=== PATIENT | male | born 1950 | race Caucasian/White ===

== ENCOUNTER 2020-07-12 15:13 | Outpatient (CLI) | payer MEDICARE, SELFPAY ==
--- NOTE | ~2020-07-12 | XR_ITS ---
EXAMINATION: XR pelvis 1-2V INDICATION: Scoliosis TECHNIQUE: AP view the pelvis is obtained. COMPARISON: None available FINDINGS: Bone alignment is normal. There is no fracture. Mild osteoarthritis is noted in the hips. T he femoral head heights are equal. The soft tissues are unremarkable. IMPRESSION: 1. Mild osteoarthritis of the hips. Reviewed, dictated and finalized at location A.
--- NOTE | ~2020-07-12 | XR_ITS ---
EXAMINATION: XR chest 2V DATE: 07/12/2020 15:48 INDICATION: Contact with and suspected exposure to other hazardous, closed TECHNIQUE: PA and lateral views of the chest are obtained. COMPARISON: None available FINDINGS: The lungs are free of acute opacities. There is no pleural effusion or pneumothorax. The ca rdiomediastinal silhouette is normal. There are bridging osteophytes at multiple levels in the spine, consistent with diffuse idiopathic skeletal hyperostosis (DISH). IMPRESSION: 1. No acute cardiopulmonary abnormality. Reviewed, dictated and finalized at location A.
--- NOTE | ~2020-07-12 | XR_ITS ---
EXAMINATION: XR lumbar spine 6V w bending DATE: 07/12/2020 15:48 INDICATION: Unspecified osteoarthritis, unspecified site, possible scoliosis TECHNIQUE: Anteroposterior, lateral in neutral, flexion and extension, and bilateral oblique views of the lumbar spine, and cone-down lateral view of the lumbosacral junction were obtained. COMPARISON: None. FINDINGS: Bone alignment is normal. There is no fracture. No laxity is present with flexion or extens ion. The vertebral body heights are maintained. There is mild loss of intervertebral disc space heigh t throughout the lumbar spine. Severe facet osteoarthritis is present in the lower lumbar spine. Dege nerative osteophytes project from the anterior endplates of multiple vertebral bodies. A large volume of colonic stool is present. Calcified atherosclerosis is noted. No significant lumbar curvature is seen. IMPRESSION: 1. Spondylosis without acute findings. Reviewed, dictated and finalized at location A.
== END 2020-07-12 15:14 | disposition home or self-care (01) ==
LOC: ANHBWCIMG 15:17
PROVIDERS: PCP Family Medicine; Visit Provider Family Medicine
DX: M41.9 Scoliosis, unspecified (principal); G89.29 Other chronic pain; M19.90 Unspecified osteoarthritis, unspecified site; M54.9 Dorsalgia, unspecified; Z77.098 Contact with and (suspected) exposure to other hazardous, chiefly nonmedicinal, chemicals; M47.896 Other spondylosis, lumbar region; M16.0 Bilateral primary osteoarthritis of hip
CPT/HCPCS: 71046; 72114; 72170

== ENCOUNTER 2020-07-13 10:31 | Outpatient (CLI) | payer MEDICARE, SELFPAY ==
[2020-07-13 18:42] LABS: Basophils Percent Auto 0.5 % (0.2-1.2); Eosinophils Absolute Auto 0.1 K/mm3 (0-0.3); Eosinophils Percent Auto 1.6 % (0-4.4); Hematocrit 39.7 % (42.0-52.0); Hemoglobin 12.9 g/dL (14.0-18.0); Immature Granulocyte Absolute 0.01 K/mm3 (0.00-0.031); Immature Granulocyte Percent A 0.2 % (0-0.5); Lymphocytes Absolute Auto 2.52 K/mm3 (0.9-3.2); Lymphocytes Percent Auto 40.3 % (18.3-44.2); Mean Corpuscular HGB Conc 32.5 g/dl (32-36); Mean Corpuscular Hemoglobin 29.7 pg (26-34); Mean Corpuscular Volume 91.5 fl (80-100); Mean Platelet Volume 11.9 fl (7.4-10.4); Monocytes Absolute Auto 0.5 K/mm3 (0.1-0.6); Monocytes Percent Auto 7.5 % (2.6-8.5); Neutrophils Absolute Auto 3.1 K/mm3 (1.3-6.7); Neutrophils Percent Auto 49.9 % (45.5-73.1); Platelet Count Result 191 k/mm3 (150-375); Red Blood Count 4.34 M/mm3 (4.6-6.20); Red Cell Distribution Width 12.9 % (11.5-14.5); White Blood Count 6.3 K/mm3 (4.5-10.0)
[2020-07-13 18:46] LABS: Add Urine Microscopic? YES; Appearance Urine Clear (Clear); Bilirubin Urine Negative (Negative); Blood Urine Negative (Negative); Color Urine Yellow (Yellow); Glucose Urine UA Negative (Negative); Ketones Urine Negative (Negative); Leukocyte Esterase Ur 1+ LEU/UL (Negative); Mucus Urine Rare /lpf; Nitrate Urine Negative (Negative); Protein Urine Negative (Negative); RBC Urine 0-2 /hpf (0-2); Specific Grav Ur 1.015 (1.001-1.035); Urobilinogen Urine Negative mg/dL (<2.0); WBC Urine 0-3 /hpf
[2020-07-13 18:50] LABS: Alanine Aminotransferase 14 U/L (4-50); Albumin Level 3.9 g/dL (3.5-5.1); Alkaline Phosphatase 96 U/L (38-126); Anion Gap 5 mmol/L (8-16); Aspartate Amino Transferase 24 U/L (17-59); Bilirubin,Total 0.4 mg/dL (0.2-1.3); Blood Urea Nitrogen 29 mg/dL (9-20); CRP < 0.5 mg/dL (<1.0); Calcium 8.8 mg/dL (8.4-10.2); Carbon Dioxide 29 mmol/L (22-30); Chloride 105 mmol/L (98-107); Cholesterol 84 mg/dL (0-200); Estimated Glomerular Filt Rate > 60; Glucose 96 mg/dL (75-110); HDL Direct 18 mg/dL; Potassium 4.8 mmol/L (3.4-5.0); Sodium 139 mmol/L (137-145); Triglycerides 77 mg/dL (<150)
[2020-07-13 19:05] LABS: Vitamin D 25 Hydroxy 73.2 ng/mL
[2020-07-13 19:06] LABS: LDL Cholesterol Direct 55 mg/dL
[2020-07-13 19:21] LABS: Prostate Specific Antigen 1.5 ng/mL (< OR = 4.0)
[2020-07-13 19:55] LABS: Folic Acid 17.8 ng/mL (2.76->20)
[2020-07-18 07:42] LABS: LH 4.4 mIU/mL (1.6-15.2)
[2020-07-19 14:42] LABS: Testosterone Free 64.6 pg/mL (35.0-155.0); Testosterone Total 505 ng/dL (250-1100)
== END 2020-07-13 10:32 | disposition home or self-care (01) ==
PROVIDERS: PCP Family Medicine; Visit Provider Family Medicine
DX: Z12.5 Encounter for screening for malignant neoplasm of prostate (principal); C85.90 Non-Hodgkin lymphoma, unspecified, unspecified site; Z77.098 Contact with and (suspected) exposure to other hazardous, chiefly nonmedicinal, chemicals; I10 Essential (primary) hypertension; Z13.9 Encounter for screening, unspecified; M19.90 Unspecified osteoarthritis, unspecified site; Z82.62 Family history of osteoporosis; Z51.81 Encounter for therapeutic drug level monitoring; Z79.899 Other long term (current) drug therapy; M41.9 Scoliosis, unspecified; N99.89 Other postprocedural complications and disorders of genitourinary system; Z00.00 Encounter for general adult medical examination without abnormal findings; M54.9 Dorsalgia, unspecified
CPT/HCPCS: 36415; 80053; 80061; 81001; 82306; 82607; 82746; 83002; 84153; 84402; 84403; 84443; 85025; 86140; G0103

== ENCOUNTER 2020-10-27 14:29 | Outpatient (CLI) | payer MEDICARE, SELFPAY ==
[2020-10-27 21:02] LABS: Prostate Specific Antigen 2.2 ng/mL (< OR = 4.0)
== END 2020-10-27 14:30 | disposition home or self-care (01) ==
PROVIDERS: PCP Family Medicine
DX: Z12.5 Encounter for screening for malignant neoplasm of prostate (principal)
CPT/HCPCS: 36415; 84153; G0103

== ENCOUNTER 2020-10-31 01:10 | Day surgery (SDC) | payer MEDICARE, SELFPAY ==
[2020-10-18 08:59] VITALS: BMI 12.1
[2020-10-31 11:18] VITALS: BP 110/72; PULSE 65; RESP 18; TEMP 36.2; O2SAT 98; BMI 27.0
--- NOTE | 2020-10-31 11:29 | WPDANESEPPF ---
Anes - Initial Pre Proc Eval Procedure: Operation Date: 10/31/20 12:45 Proposed Procedures p Screening Colonoscopy - Aaron Duran MD Date/Time: 10/31/20 11:29 Surgeon: Aaron Duran MD Pre Op Diagnosis: neoplasm screening Patient Data Age: 70 Gender: M Height: 1.75 m Weight: 83 kg Last Vital Signs Pulse 65 10/31/20 11:18 Resp 18 10/31/20 11:18 BP 110/72 10/31/20 11:18 Pulse Ox 98 10/31/20 11:18 Allergies Allergy/AdvReac Type Severity Reaction Status Date / Time Penicillins AdvReac Rash Verified 10/31/20 11:15 Home Medications Medication Instructions Recorded Confirmed Type atorvastatin 20 mg tablet 20 mg PO DAILY #90 tablet 07/26/20 10/31/20 Rx citalopram 20 mg tablet 20 mg PO DAILY #90 tablet 07/26/20 10/31/20 Rx lisinopril 10 mg tablet 10 mg PO DAILY #90 tablet 07/26/20 10/31/20 Rx tamsulosin 0.4 mg PO DAILY 10/18/20 10/31/20 History Patient hx anesthesia problems: none Family hx anesthesia problems: none [facility] Past Medical History Medical History Allergies Anxiety Asthma Cancer Lymphoma Lymphoma, nodular, multiple sites Family History Family History Grandparent Cancer Social History Social History Smoking status: Never smoker Alcohol intake: never Substance use: never Substance use type: does not use Living arrangements: with family Spiritual care concerns: Yes Anes - Eval Final PreProcedure Day of Procedure 10/31/20 11:29 Patient weight: overweight Heart: regular rate and rhythm Lungs: clear to auscultation Airway: Mallampati scale class II Neurological: alert and oriented Last oral intake: >/= 8 hours ASA classification: II Emergent: no Anesthetic plan: proceed Anesthesia type and monitoring: general GIVS and standard monitoring Informed Consent: The patient's anesthetic plan and its attendant risks and benefits were discussed with the patient/family/POA. Questions were solicited and answers provided to the satisfaction of the patient/family/POA.
[2020-10-31] MEDS: LACTATED RINGERS 1,000 ML 30 ML IV CONT (11:30)
--- NOTE | 2020-10-31 11:48 | PM.HPGS ---
History of Present Illness History of Present Illness Consent: Risks, benefits, and alternatives have been discussed and questions answered. Patient agrees to proceed with procedure. Chief complaint: neoplasm screening Narrative: Hermilo Ingram is a 70 year old male with colon polyps 5 years ago. Review of Systems Constitutional: Constitutional: Denies headache(s) and Denies weakness Eyes: Eyes: Denies blurry vision ENT: Reports Normal hearing present, Denies headache(s) and Denies neck pain Cardiovascular: Cardiovascular: Denies chest pain and Denies dyspnea Respiratory: Respiratory: Denies dyspnea Gastrointestinal: Gastrointestinal: Reports no additional gastrointestinal complaints Genitourinary: Genitourinary: Denies dysuria Musculoskeletal: Musculoskeletal: Denies neck pain Integumentary/Breasts: Skin/Breast: Denies dry skin Neurologic: Reports Normal hearing present, Denies headache(s) and Denies weakness Psychiatric: Psychiatric: Denies anxiety Endocrine: Endocrine: Denies change in body appearance Hematologic/Lymphatic: Hematologic/Lymphatic: Denies easy bleeding Allergic/Immunologic: Allergic/Immunologic: Denies urticaria PMF Past Medical History Medical History (Updated 10/31/20 @ 11:49 by Aaron Duran MD) Allergies Anxiety Asthma Cancer Colon cancer screening Lymphoma Lymphoma, nodular, multiple sites Family History Family History Grandparent Cancer Social History Social History Smoking status: Never smoker Alcohol intake: never Substance use: never Substance use type: does not use Living arrangements: with family Spiritual care concerns: Yes Meds Home Medications and Allergies Home Medications Medication Instructions Recorded Confirmed Type atorvastatin 20 mg tablet 20 mg PO DAILY #90 tablet 07/26/20 10/31/20 Rx citalopram 20 mg tablet 20 mg PO DAILY #90 tablet 07/26/20 10/31/20 Rx lisinopril 10 mg tablet 10 mg PO DAILY #90 tablet 07/26/20 10/31/20 Rx tamsulosin 0.4 mg PO DAILY 10/18/20 10/31/20 History Allergies Allergy/AdvReac Type Severity Reaction Status Date / Time Penicillins AdvReac Rash Verified 10/31/20 11:15 Vital Signs Vital Signs - 24 hr 10/31/20 11:18 Temperature 97.2 F L Pulse Rate 65 Respiratory Rate 18 Blood Pressure 110/72 Pulse Oximetry 98 Exam Const: General: comfortable and no acute distress HENMT: General nose exam: Normal nares present Eyes: General: appearance normal, both eyes and all related structures Neck: Neck: no JVD Resp: Auscultation: clear to auscultation bilaterally Cardio: Rate: regular rate Rhythm: regular rhythm GI: Inspection: non-distended GI Palp: Yes Soft to palpation Skin: General skin exam: normal color Neuro: General: gait normal Speech: normal speech Extrem: General: normal to inspection Psych: Mental Status: mental status grossly normal Assessment and Plan Assessment and plan (1) Colon cancer screening: Code(s): Z12.11 - Encounter for screening for malignant neoplasm of colon Status: Acute Assessment and Plan: colonoscopy
[2020-10-31 12:04] VITALS: BP 101/61; PULSE 63; RESP 15; O2SAT 97
[2020-10-31 12:14] VITALS: BP 103/66; PULSE 60; RESP 15; O2SAT 98
[2020-10-31 12:24] VITALS: BP 122/77; PULSE 56; RESP 16; O2SAT 100
== END 2020-10-31 12:35 | disposition home or self-care (01) ==
PROVIDERS: PCP Family Medicine; Visit Provider Internal Medicine Gastroenterology
PROC: 0DJD8ZZ Inspection of Lower Intestinal Tract, Via Natural or Artificial Opening Endoscopic (ICD-10-PCS; CPT 45378; principal; 2020-10-31 12:45)
DX: Z12.11 Encounter for screening for malignant neoplasm of colon (principal); K57.30 Diverticulosis of large intestine without perforation or abscess without bleeding; K64.8 Other hemorrhoids; F41.9 Anxiety disorder, unspecified; J45.909 Unspecified asthma, uncomplicated; C85.90 Non-Hodgkin lymphoma, unspecified, unspecified site
CPT/HCPCS: G0121; J2704; J7120

== ENCOUNTER 2020-11-29 09:56 | Outpatient (CLI) | payer MEDICARE, SELFPAY ==
--- NOTE | ~2020-11-29 | XR_ITS ---
EXAMINATION: XR ribs BI 3V w CXR 2V EXAM DATE: 11/29/2020 10:13 INDICATION: W19.XXXA - Unspecified fall, initial encounter. Left mid to lower lateral rib pain. TECHNIQUE: Frontal projection of the upper left ribs, frontal projection of the lower left ribs, obli que projection of the left ribs. Frontal projection of the upper right ribs, frontal projection of t he lower right ribs, oblique projection of the right ribs, frontal and lateral chest x-ray(s) for int erpretation. Comparison is made to prior examination from 07/12/2020. FINDINGS: There are no displaced acute rib fractures identified. No confluent consolidation, pneumot horax or pleural effusion suspected. Cardiomediastinal silhouette is normal. IMPRESSION: No acute displaced rib fractures bilaterally. Reviewed, dictated and finalized at location A.
== END 2020-11-29 09:57 | disposition home or self-care (01) ==
LOC: ANHBWCIMG 09:58
PROVIDERS: PCP Family Medicine; Visit Provider Family Medicine
DX: R07.81 Pleurodynia (principal)
CPT/HCPCS: 71046; 71110

== ENCOUNTER 2021-11-30 08:22 | Outpatient (CLI) | payer MEDICARE, SELFPAY ==
[2021-11-30 18:42] LABS: Basophils Percent Auto 0.5 % (0.2-1.2); Eosinophils Absolute Auto 0.2 K/mm3 (0-0.3); Eosinophils Percent Auto 2.8 % (0-4.4); Hematocrit 40.6 % (42.0-52.0); Immature Granulocyte Absolute 0.01 K/mm3 (0.00-0.031); Immature Granulocyte Percent A 0.1 % (0-0.5); Lymphocytes Absolute Auto 2.77 K/mm3 (0.9-3.2); Lymphocytes Percent Auto 36.5 % (18.3-44.2); Mean Corpuscular Volume 90.4 fl (80-100); Mean Platelet Volume 11.9 fl (7.4-10.4); Monocytes Absolute Auto 0.6 K/mm3 (0.1-0.6); Monocytes Percent Auto 7.9 % (2.6-8.5); Neutrophils Percent Auto 52.2 % (45.5-73.1); Platelet Count Result 212 k/mm3 (150-375); Red Blood Count 4.49 M/mm3 (4.6-6.20); Red Cell Distribution Width 13.2 % (11.5-14.5); White Blood Count 7.6 K/mm3 (4.5-10.0)
[2021-11-30 18:58] LABS: Alanine Aminotransferase 18 U/L (6-50); Albumin Level 4.2 g/dL (3.5-5.1); Alkaline Phosphatase 105 U/L (38-126); Anion Gap 8 mmol/L (8-16); Aspartate Amino Transferase 57 U/L (17-59); Bilirubin,Total 0.6 mg/dL (0.2-1.3); Blood Urea Nitrogen 21 mg/dL (9-20); Calcium 9.1 mg/dL (8.4-10.2); Carbon Dioxide 29 mmol/L (22-30); Chloride 102 mmol/L (98-107); Cholesterol 117 mg/dL (0-200); Estimated Glomerular Filt Rate > 60; Glucose 95 mg/dL (65-110); HDL Direct 21 mg/dL; Sodium 139 mmol/L (137-145); Triglycerides 158 mg/dL (<150)
[2021-11-30 19:09] LABS: LDL Cholesterol Direct 60 mg/dL
[2021-11-30 19:26] LABS: Prostate Specific Antigen 1.4 ng/mL (< OR = 4.0)
== END 2021-11-30 08:23 | disposition home or self-care (01) ==
PROVIDERS: PCP Family Medicine; Visit Provider Family Medicine
DX: J45.909 Unspecified asthma, uncomplicated (principal); F41.9 Anxiety disorder, unspecified; D64.9 Anemia, unspecified; Z85.79 Personal history of other malignant neoplasms of lymphoid, hematopoietic and related tissues; M54.9 Dorsalgia, unspecified; G89.29 Other chronic pain; Z12.5 Encounter for screening for malignant neoplasm of prostate; I10 Essential (primary) hypertension
CPT/HCPCS: 36415; 80053; 80061; 84153; 85025; G0103

== ENCOUNTER 2022-12-03 14:41 | Outpatient (CLI) | payer MEDICARE, SELFPAY ==
[2022-12-03 19:07] LABS: Hematocrit 39.5 % (42.0-52.0); Hemoglobin 13.1 g/dL (14.0-18.0); Mean Corpuscular HGB Conc 33.2 g/dl (32-36); Mean Corpuscular Hemoglobin 30.5 pg (26-34); Mean Corpuscular Volume 92.1 fl (80-100); Mean Platelet Volume 12.1 fl (7.4-10.4); Platelet Count Result 193 k/mm3 (150-375); Red Blood Count 4.29 M/mm3 (4.6-6.20); Red Cell Distribution Width 12.3 % (11.5-14.5)
[2022-12-03 19:34] LABS: Alanine Aminotransferase 21 U/L (6-50); Albumin Level 4.2 g/dL (3.5-5.1); Alkaline Phosphatase 123 U/L (38-126); Anion Gap 7 mmol/L (8-16); Aspartate Amino Transferase 40 U/L (17-59); Bilirubin,Total 0.4 mg/dL (0.2-1.3); Blood Urea Nitrogen 21 mg/dL (9-20); Calcium 9.1 mg/dL (8.4-10.2); Carbon Dioxide 28 mmol/L (22-30); Chloride 106 mmol/L (98-107); Cholesterol 110 mg/dL (0-200); Estimated Glomerular Filt Rate > 60; Glucose 89 mg/dL (65-110); HDL Direct 19 mg/dL; LDL Cholesterol Direct 70 mg/dL; Potassium 3.9 mmol/L (3.4-5.0); Sodium 141 mmol/L (137-145); Triglycerides 171 mg/dL (<150)
[2022-12-03 19:44] LABS: Iron 84 ug/dL (49-181)
[2022-12-03 19:50] LABS: Prostate Specific Antigen 1.8 ng/mL (< OR = 4.0)
[2022-12-03 19:53] LABS: Percent Iron Saturation 29 % (20-50)
[2022-12-06 10:39] LABS: Testosterone Total 348 ng/dL (250-1100)
== END 2022-12-03 14:42 | disposition home or self-care (01) ==
PROVIDERS: PCP Family Medicine; Visit Provider Family Medicine
DX: R53.83 Other fatigue (principal); C85.90 Non-Hodgkin lymphoma, unspecified, unspecified site; D64.9 Anemia, unspecified; F41.9 Anxiety disorder, unspecified; G89.29 Other chronic pain; I10 Essential (primary) hypertension; J45.909 Unspecified asthma, uncomplicated; M54.9 Dorsalgia, unspecified; N40.0 Benign prostatic hyperplasia without lower urinary tract symptoms; Z12.5 Encounter for screening for malignant neoplasm of prostate; R25.1 Tremor, unspecified; E78.1 Pure hyperglyceridemia
CPT/HCPCS: 36415; 80053; 80061; 83540; 83550; 84153; 84403; 84443; 85027; G0103

== ENCOUNTER 2023-06-03 13:36 | Outpatient (CLI) | payer MEDICARE, SELFPAY ==
[2023-06-03 19:00] LABS: Hematocrit 44.2 % (42.0-52.0); Hemoglobin 14.2 g/dL (14.0-18.0); Mean Corpuscular HGB Conc 32.1 g/dl (32-36); Mean Corpuscular Hemoglobin 29.8 pg (26-34); Mean Corpuscular Volume 92.9 fl (80-100); Mean Platelet Volume 11.8 fl (7.4-10.4); Platelet Count Result 222 k/mm3 (150-375); Red Blood Count 4.76 M/mm3 (4.6-6.20); Red Cell Distribution Width 12.4 % (11.5-14.5); White Blood Count 9.1 K/mm3 (4.5-10.0)
[2023-06-03 20:15] LABS: Alanine Aminotransferase 20 U/L (6-50); Albumin Level 4.4 g/dL (3.5-5.1); Alkaline Phosphatase 106 U/L (38-126); Anion Gap 6 mmol/L (8-16); Aspartate Amino Transferase 43 U/L (17-59); Bilirubin,Total 0.6 mg/dL (0.2-1.3); Blood Urea Nitrogen 27 mg/dL (9-20); Calcium 9.4 mg/dL (8.4-10.2); Carbon Dioxide 29 mmol/L (22-30); Chloride 104 mmol/L (98-107); Estimated Glomerular Filt Rate > 60; Glucose 73 mg/dL (65-110); Potassium 4.2 mmol/L (3.4-5.0); Sodium 139 mmol/L (137-145)
== END 2023-06-03 13:37 | disposition home or self-care (01) ==
LOC: ANHBWCLAB 13:38
PROVIDERS: PCP Family Medicine; Visit Provider Family Medicine
DX: C85.90 Non-Hodgkin lymphoma, unspecified, unspecified site (principal); J45.909 Unspecified asthma, uncomplicated; R25.1 Tremor, unspecified; R53.83 Other fatigue
CPT/HCPCS: 36415; 80053; 85027

== ENCOUNTER 2023-12-17 08:58 | Outpatient (CLI) | payer MEDICARE, SELFPAY ==
[2023-12-17 18:45] LABS: Basophils Absolute Auto 0.1 K/mm3 (0.0-0.1); Basophils Percent Auto 0.7 % (0.2-1.2); Eosinophils Absolute Auto 0.1 K/mm3 (0-0.3); Eosinophils Percent Auto 1.6 % (0-4.4); Hematocrit 42.9 % (42.0-52.0); Hemoglobin 13.5 g/dL (14.0-18.0); Immature Granulocyte Absolute 0.01 K/mm3 (0.00-0.031); Immature Granulocyte Percent A 0.1 % (0-0.5); Lymphocytes Absolute Auto 2.42 K/mm3 (0.9-3.2); Mean Corpuscular HGB Conc 31.5 g/dl (32-36); Mean Corpuscular Hemoglobin 28.8 pg (26-34); Mean Corpuscular Volume 91.5 fl (80-100); Mean Platelet Volume 11.3 fl (7.4-10.4); Monocytes Absolute Auto 0.5 K/mm3 (0.1-0.6); Monocytes Percent Auto 6.9 % (2.6-8.5); Neutrophils Absolute Auto 3.9 K/mm3 (1.3-6.7); Neutrophils Percent Auto 55.7 % (45.5-73.1); Platelet Count Result 231 k/mm3 (150-375); Red Blood Count 4.69 M/mm3 (4.6-6.20); Red Cell Distribution Width 12.8 % (11.5-14.5); White Blood Count 6.9 K/mm3 (4.5-10.0)
[2023-12-17 18:57] LABS: Alanine Aminotransferase 15 U/L (6-50); Albumin Level 4.3 g/dL (3.5-5.1); Alkaline Phosphatase 126 U/L (38-126); Anion Gap 10 mmol/L (4-12); Aspartate Amino Transferase 43 U/L (17-59); Bilirubin,Total 0.3 mg/dL (0.2-1.3); Blood Urea Nitrogen 24 mg/dL (9-20); Calcium 9.1 mg/dL (8.4-10.2); Carbon Dioxide 26 mmol/L (22-30); Chloride 105 mmol/L (98-107); Cholesterol 121 mg/dL (0-200); Estimated Glomerular Filt Rate > 60; Glucose 104 mg/dL (65-110); HDL Direct 21 mg/dL; Magnesium 2.2 mg/dL (1.6-2.3); Potassium 4.2 mmol/L (3.4-5.0); Sodium 141 mmol/L (137-145); Triglycerides 157 mg/dL (<150)
[2023-12-17 19:08] LABS: LDL Cholesterol Direct 69 mg/dL
== END 2023-12-17 08:59 | disposition home or self-care (01) ==
PROVIDERS: PCP Nurse Practitioner Adult Health; Visit Provider Nurse Practitioner Adult Health
DX: Z12.5 Encounter for screening for malignant neoplasm of prostate (principal); I10 Essential (primary) hypertension
CPT/HCPCS: 36415; 80053; 80061; 83735; 84153; 85025; G0103

== ENCOUNTER 2024-07-14 09:18 | Outpatient (CLI) | payer MEDICARE, SELFPAY ==
--- OUTSIDE RECORDS SUMMARY | 2024-07-14 10:07 | XMS_ITS | Clinical Summary ---
Author Organization [facility] [address] Address [address] [place] [address] Phone Care Team Providers Care Train Attendant Name Role Phone Asif Orellana Primary Care Provider [phone] Allergies Active Allergy Reactions Criticality Noted Date Comments Penicillins Hives Medium Medications cetirizine (ZyrTEC) 10 mg tablet Take 10 mg by mouth daily as needed. Active atorvastatin (LIPITOR) 20 mg tabletIndications :Low HDL (under 40) Take 1 tablet (20 mg total) by mouth daily 90 tablet 3 0 Active lisinopriL (PRINIVIL,ZESTRIL ) 10 mg tabletIndications :Essential hypertension Take 1 tablet (10 mg total) by mouth daily 90 tablet 3 0 Active tamsulosin (FLOMAX) 0.4 mg extended release capsuleIndication s:enlarged prostate Take 1 capsule (0.4 mg total) by mouth nightly 90 capsule 3 1 Active Active Problems Problem Noted Date Diagnosed Date Benign prostatic hyperplasia 12/16/2019 Hematuria 12/16/2019 Bacterial cystitis 04/28/2019 Assessment & Plan (04/30/2019 9:19 AM HOME CARE COMPANION): Urinalysis showed some pyuria and greater than 100,000 clinically insignificant bacteria. Since his last office visit, he has developed some vague frequency and urgency, possibly some dysuria. CT scan showed some thickening of the bladder wall and stranding in the surrounding tissue suggestive of cystitis. We will put him on empiric Bactrim therapy, risks of medication discussed. We will repeat a urinalysis in two weeks. If abnormalities persist, referral to Urology is probably a good idea. Chronic prostatitis 04/08/2019 Overview (05/22/2019): Active sediment, negative culture, improved with Bactrim. Assessment & Plan (11/10/2019 1:49 PM CDT): He had an sediment and negative culture which was improved with a trial of Bactrim therapy. It could have been a low grade cystitis. He never had much in the way of urinary symptoms, just some vague pelvic and flank pains. The right flank pain is improved. We will check a follow-up urinalysis. Assessment & Plan (05/31/2019 5:48 PM HOME CARE COMPANION): His left flank/pelvic discomfort/left lower abdominal symptoms are improved with empiric therapy of possible chronic prostatitis/bacterial cystitis. A follow-up urinalysis shows a decreased number of white blood cells per high-power field that did not meet the criteria for culture. Previously, a urine culture was negative for pathogenic bacteria. He probably has a mild chronic prostatitis. We will keep him on Bactrim for the next two or three months, risks of medication discussed. Check a BMP in two weeks due to also being on lisinopril. Check a urinalysis at the end of treatment to see if there is improvement, risks of medication discussed. Follow- up as scheduled in October or sooner if needed. Left hip pain 10/06/2018 Assessment & Plan (05/10/2019 2:01 PM HOME CARE COMPANION): No major hip pathology was reported on his recent stone protocol CT scan. It could be a referred pain from his back. We will review with radiology. Assessment & Plan (04/21/2019 10:14 AM HOME CARE COMPANION): He has been experiencing some nagging left hip pain. It seems to be radiating or associated with left mid to lower back pain and flank pain. Etiology is unclear. We are getting a renal stone protocol CT which should include the hip to assess for osteoarthritis there. He will start taking some ibuprofen regularly for the next two weeks. I suggested physical therapy, but he wants to defer for now. We will be in touch with him about results of imaging. Left flank pain 10/06/2018 Assessment & Plan (04/30/2019 9:20 AM HOME CARE COMPANION): He continues to have left-sided mid to lower back and flank pain of unknown cause. It is intermittent and seems to be related mostly to position, so a musculoskeletal cause is suspected. No major pathology was reported on his renal stone protocol CT scan. We will review in person with Radiology. Assessment & Plan (05/03/2019 3:47 PM HOME CARE COMPANION): He has somewhat chronic left-sided mid to lower back/flank pain of uncertain cause. We are evaluating with a urinalysis and renal stone protocol CT scan. Essential hypertension 09/16/2018 Assessment & Plan (11/03/2019 9:44 AM CDT): Blood pressure is in a good range on current therapy. He has no new symptoms of concern. Recent labs are stable. Continue same and follow-up in a year or sooner if needed. Lab Results Component Value Date GLUCOSE 103 10/27/2019 CALCIUM 9.2 10/27/2019 SODIUM 143 10/27/2019 POTASSIUM 4.4 10/27/2019 CO2 26 10/27/2019 CHLORIDE 108 10/27/2019 BUNSER 20 10/27/2019 CREATININE 1.17 10/27/2019 Assessment & Plan (04/21/2019 10:13 AM HOME CARE COMPANION): Blood pressure is in a good range. He is tolerating his medications. We'll check follow-up labs before his next visit in six months. Assessment & Plan (10/16/2018 10:53 AM CDT): Blood pressure in the office today is actually acceptable, but he brought in readings over the past month or so from home and most of them are mildly elevated. We will put him on lisinopril, risks of medication discussed. He will continue to check blood pressure at home. Carpio blood pressure is around 120/70. If he is not consistently below 140/90, he should call for early follow up and/or adjustment of medication. Otherwise, follow-up in six months. Assessment & Plan (09/16/2018 10:13 AM CDT): We have been watching a borderline blood pressure situation. Blood pressure 6 months ago was normal. Today, after climbing the steps, he had mild elevation of systolic and diastolic. After resting in the room for awhile, systolic came back into a normal range, but diastolic remains mildly elevated. We will have him start checking blood pressure at home. He does have a good quality cuff that we have previously evaluated for accuracy, but he has not been checking lately. He will bring his readings back to the office in about a month for review. External hemorrhoids 09/06/2017 Assessment & Plan (10/16/2018 10:53 AM CDT): He went to see Dr. Benoit, but since the hemorrhoids were not bothering him that much at the time, they recommended conservative management without surgery for now. Assessment & Plan (09/23/2018 3:24 PM CDT): Patient's symptoms are minimal. He was offered to try topical medications as needed or have surgical intervention as long as he understands the post op period, patient was agreeable to try topical medications as needed and will let us know if he changes his mind or if symptoms change. He denies current issues with his bowel regimen. He was encouraged to avoid constipation or diarrhea as these may aggravate symptoms. Assessment & Plan (09/16/2018 10:12 AM CDT): He has had external hemorrhoids for awhile now. Lately they have been bothering him with some local irritation and bleeding. They have flared from time to time in the past. We will refer to Dr. Benoit for further evaluation and management. Sensorineural hearing loss (SNHL) of both ears 1 05/05/2016 Overview (03/09/2017): Moderate to severe, see audiology report. Assessment & Plan (09/16/2018 10:16 AM CDT): Hearing is functional, and exam of the ear drums is normal. Low HDL (under 40) 03/01/2017 Overview (08/29/2017): Normal total and LDL cholesterol, low HDL. Assessment & Plan (11/10/2019 1:51 PM CDT): He has a low HDL. O He is on cholesterol medicine to reduce cardiovascular risk, total and LDL cholesterol are also very low. He is tolerating medication well. Lab Results Component Value Date CHOL 82 10/27/2019 CHOL 141 09/16/2018 CHOL 138 02/15/2017 Lab Results Component Value Date HDL 22 (L) 10/27/2019 HDL 22 (L) 09/16/2018 HDL 23 (L) 02/15/2017 Lab Results Component Value Date LDLCALC 40 10/27/2019 LDLCALC 96 09/16/2018 LDL 94 02/15/2017 Lab Results Component Value Date TRIG 99 10/27/2019 TRIG 116 09/16/2018 TRIG 110 02/15/2017 Assessment & Plan (10/26/2018 8:59 AM CDT): Total and LDL cholesterol are not that bad, but HDL is quite low. We talked about eating right, avoiding saturated fats, and getting regular aerobic exercise. Ten year Brimhall risk is also somewhat elevated at 10%. He might be able to reduce that risk by taking a cholesterol medicine. After discussing risks versus benefits, he would like to try generic Lipitor 20 mg daily. We will check a follow-up lipid panel in about a year. Assessment & Plan (03/06/2018 9:08 AM HOME CARE COMPANION): We do not have a current lipid panel, but will check again with his next appointment in about six months. In the meantime, work on diet. I gave him some common sense advice. Assessment & Plan (08/29/2017 10:57 AM CDT): We discussed the most recent cholesterol panel from last February. Total cholesterol and LDL are in a very good range, but HDL is low. Recommend he eat a heart healthy diet, and get regular aerobic exercise. Follow-up lipid panel periodically. Non morbid obesity 10/06/2014 Assessment & Plan (11/10/2019 1:51 PM CDT): He is right at the borderline of obesity. Blood sugar on recent labs was mildly elevated. We discussed the risk of diabetes. He should work on his diet and lose some weight. Lab Results Component Value Date GLUCOSE 103 10/27/2019 CALCIUM 9.2 10/27/2019 SODIUM 143 10/27/2019 POTASSIUM 4.4 10/27/2019 CO2 26 10/27/2019 CHLORIDE 108 10/27/2019 BUNSER 20 10/27/2019 CREATININE 1.17 10/27/2019 Assessment & Plan (05/03/2019 3:50 PM HOME CARE COMPANION): He has put on a few pounds. This might be contributing to his back/flank/hip issues. Weight loss would probably help. We will have him work on this. Assessment & Plan (09/16/2018 10:15 AM CDT): Weight is down few lb, so he is no longer technically obese. Continue efforts. Assessment & Plan (03/06/2018 9:08 AM HOME CARE COMPANION): His weight fluctuates. He was down as low as about 193 lb, but is 10 lb heavier, placing him in a technically obese category again. He has been lifting weights. His has been placed on a low-carbohydrate diet so he thinks this will help. I encouraged him to continue efforts along this line. Assessment & Plan (02/14/2017 12:03 PM HOME CARE COMPANION): Ever since he retired, he has not been as active, and his weight has crept up on him. He is trying to work on keeping his weight under control. Benign prostatic hyperplasia with nocturia 08/06 Overview (08/14/2017): Improved with Flomax. Assessment & Plan (11/10/2019 1:48 PM CDT): He is no longer using Flomax. He gets up at night once or twice to urinate. He has no urinary discomfort. PSA about a year ago was unremarkable. There was a question of possible bacterial cystitis versus prostatis, and he was treated with 2 weeks of antibiotics. Most of his symptoms resolved. A follow-up urinalysis is pending. Prostate exam today is unchanged. We will monitor clinically. Assessment & Plan (05/10/2019 2:00 PM HOME CARE COMPANION): Prostate is somewhat enlarged, but probably more or less normal for his age. There is no tenderness to suggest prostatitis. Exam is similar to six months ago when he was here for his annual. Assessment & Plan (05/03/2019 3:47 PM HOME CARE COMPANION): He has no new symptoms. He was previously on Flomax, but is no longer taking this medication. He is having some left flank pain, possibly chronic nephrolithiasis, but there is no visible blood in the urine. We will check a urinalysis and renal stone protocol CT scan. Assessment & Plan (09/16/2018 10:10 AM CDT): He has no new urinary symptoms. He used to take Flomax, but it is not currently on his list. Prostate is mildly to moderately enlarged with no definite worrisome features. He would like to check another PSA, so this will be done. Assessment & Plan (03/06/2018 9:04 AM HOME CARE COMPANION): He ran out of Flomax, but has not noticed any difference in symptoms, so he does not plan to resume taking it. We will monitor for any recurrent symptoms. Assessment & Plan (08/14/2017 10:41 AM CDT): He is doing well in this regard. The Flomax has helped reduce the frequency of nocturia. He has no other urinary complaints. Originally, we were going to check his PSA because of a past history of elevation. He did go to see a urologist in [place] a few years ago, but he does not recall any of the details. He will get the PSA done today. Tinnitus aurium, left 02/06/2010 Assessment & Plan (02/14/2017 12:03 PM HOME CARE COMPANION): Some associated hearing loss. Has not seen an ENT specialist. In past 4-5 months has had 2 episodes of vertigo lasting a few minutes each. Has a constant pressure behind the left ear. In view of these symptoms, imaging is indicated so we will check an MRI of the brain and the internal auditory canals. He could have an acoustic neuroma or other slow growing process. Mid back pain 02/06/2009 Assessment & Plan (04/21/2019 10:15 AM HOME CARE COMPANION): He has chronic mid to lower and mostly left-sided back and flank pain of uncertain cause. Presumably this is due to degenerative change. He has acute exacerbations when he sneezes and in certain positions. It seems to be worsening, possibly due to weight gain. We are getting a renal stone protocol CT which should allow is to image his spine as well as his left hip. We will be in touch with him about results. 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 It only bothers him when he coughs or when he bumps into a wall. It can cause sharp shooting pains radiating from the mid back down to his left lower back and gluteal area. Sometimes there is a bandlike radiation anteriorly. Hanging on the inversion table at home can help quite a bit. This sounds like a musculoskeletal/degenerative osteoarthritis type of pain in his spine with some nerve irritation. He says it is not progressive, but if he wants additional workup, he will let me know so we can pursue it. Assessment & Plan (02/14/2017 12:04 PM HOME CARE COMPANION): No history of injury. Occasional radiation to lower back and left hip. Got some therapy which helped a lot. Takes an occasional Jacey aspirin, otherwise no treatment or Xrays done. Exam is normal, so this seems like ordinary mechanical back pain. We will continue to monitor clinically without further evaluation or intervention at this time unless things change. Chronic seasonal allergic rhinitis 02/06/1997 Assessment & Plan (09/27/2018 11:48 AM CDT): He takes Zyrtec as needed for his allergies. Recently he has had a cough which he thinks is more of a viral respiratory infection. It started about a week ago and was associated with some hot flashes. He did not take his temperature. He says it is improving. Exam of the lungs does show some moderate course wheezing in both lung bases, left greater than right. If he does not continue to improve, he should call for an early follow-up. Assessment & Plan (08/14/2017 10:42 AM CDT): Symptoms are reasonably well controlled with [id number] Zyrtec. His chronic cough has resolved. He thinks it is because a pet they had in the house . Continue to monitor. Assessment & Plan (02/14/2017 12:04 PM HOME CARE COMPANION): Mostly fall allergies affecting eyes and nasal passages. Responds to Zyrtec taken as needed. He denies having perennial symptoms, or much in the way of postnasal drainage, so it is unlikely that he has chronic sinusitis as a cause of his cough, but it is a consideration. He may want to think about taking the Zyrtec regularly. Resolved Problems Problem Noted Date Diagnosed Date Resolved Date Elevated blood pressure reading 08/14/2017 10/16/2018 Overview (10/16/2018): Transitioned to mild hypertension, on treatment. Assessment & Plan (03/06/2018 9:07 AM HOME CARE COMPANION): We are monitoring a somewhat borderline blood pressure at times, but today it is in a reasonable range so we will continue without intervention for now. Weight loss would be helpful. He is also trying to stay active. Follow-up in six months. Assessment & Plan (08/29/2017 10:56 AM CDT): Blood pressure in the office is again somewhat borderline. He brought in some blood pressure readings from home. Initially, they were mildly elevated, but more recent ones have been normal. He will continue to monitor and write down blood pressures. Bring them to his next office visit in six months. Assessment & Plan (08/14/2017 10:42 AM CDT): Blood pressure in the office today is mildly elevated. He has never had high blood pressure before. We will have him check blood pressures at home over period of two weeks or so and return with the readings for re-evaluation. Other chest pain 06/06/2017 03/06/2018 Overview (08/14/2017): Single episode, night time. Details not remembered. No associated symptoms. Lasted 30' but he did not seek medical attention. He stays active, no history of exertional chest pain. Assessment & Plan (08/29/2017 10:55 AM CDT): He had a treadmill stress test which was normal. He had excellent exercise tolerance. There was no chest pain or EKG change. This significantly lowers his cardiovascular risk. Therapeutic lifestyle changes are still recommended and were discussed. Assessment & Plan (08/14/2017 7:58 PM CDT): About two months ago, he had a single episode of fairly severe chest pain that lasted about 30 min. There were no associated symptoms. He can't remember many of the details, whether it was before bedtime or if it woke him from sleep. He is quite active, mows grass, helped a friend build a deck. He has never had exertional chest pain. We checked an EKG in the office. There is poor R wave progression, possible Q in V1 only, and PRWP, but no definite evidence of prior LA. We will order a treadmill stress test. Brimhall risk based on his last cholesterol profile is 13%, so we will consider putting him on cholesterol medicine as well depending on his wishes. Currently he does not want to take a cholesterol medicine. It is probably a good idea for him to take a baby aspirin as well pending results of the stress test, and he agrees to do so. If he has chest pain in the meantime, he should go straight to the emergency room for further evaluation. Chronic cough 02/07/2012 08/14/2017 Assessment & Plan (03/01/2017 12:33 PM HOME CARE COMPANION): Irritation in chest with mostly nonproductive cough for past 4-5 years. No change in severity. No history of hemoptysis. If he produces sputum, it is clear. He does have a lot of heartburn, 2 x a week. Takes OTC Nexium as needed. For the past year, his heartburn has not really bothered him much. He has learned to modify his diet and avoid foods that cause him the symptoms. However he could be having silent reflux. We will get a chest x-ray, and if normal, consider other interventions or referral. Immunizations Immunization Administration Dates Next Due Influenza, Quadrivalent, Spl it, Preservative Free, Intramuscular 03/06/2018 Influenza, Trivalent, High D ose, Split, Preservative Free, Intramuscular 04/21/2019,02/14/2017 Pneumococcal Conjugate PCV 13 02/14/2017 Pneumococcal Polysaccharide PPV23 03/06/2018 Surgical History Surgery Date Site/Laterality Comments SALIVARY GLAND SURGERY 09/08/2009 MALT (marginal zone) lymphoma, resected, T0. COLONOSCOPY 04/06/2004 Normal, Dr. Hernández. COLONOSCOPY 04/08/2007 - 04/07/2008 Details lacking. COLONOSCOPY 04/25/2017 Tubular adenoma, Dr. Mcqueen, [facility]. CYSTOSCOPY 01/08/2020 Office procedure, normal except for enlarge prostate lateral lobes, Dr. Davies. Medical History Medical History Date Comments Colon polyp GERD (gastroesophageal reflu x disease) Low back pain Details lacking. 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 Details lacking. Chronic cough 02/07/2012 Other chest pain 06/06/2017 Single episode, night time. Details not remembered. No associated symptoms. Lasted 30' but he did not seek medical attention. He stays active, no history of exertional chest pain. History of stress test 08/21/2017 Normal, A . Essential hypertension 09/16/2018 Elevated blood pressure reading 08/14/2017 Transitioned to mild hypertension, on treatment. Asthma Erectile dysfunction Kidney stone Visual impairment Family History * Patient is adopted Medical History Relation Name Comments Alzheimer's disease Father Heart attack Father Breast cancer Maternal Grandmother Diabetes type II Mother's Sister Arthritis Other 1 Family history of arthritis; Cancer Other 2 Family history of cancer; Diabetes Other 3 Family history of diabetes; Other Other 4 Family history of heart problem; Other Other 5 Family history of high blood pressure; Relation Name Status Comments Father Maternal Grandmother Mother's Sister Other 1 Other 2 Other 3 Other 4 Other 5 Social History Tobacco Use Types Packs/Day Years Used Date Smoking Tobacco: Never Smokeless Tobacco: Never Tobacco Cessation:Counseling Given: Yes Alcohol Use Standard Drinks/Week Comments Yes 0 (1 standard drink = 0.6 oz pur e alcohol) PHQ-2 Answer Date Recorded PHQ-2 Total Score (If total score is 3 or more points, staff should administer the PHQ-9) 0 11/03/2019 Personal Safety Answer Date Recorded Getting School Help Needed Not on file 06/21 Sex and Gender Information Value Date Recorded Sex Assigned at Not on file Legal Sex Male 11:10 AM HOME CARE COMPANION Gender Identity Not on file Sexual Orientation Not on file Obstetrics History Last Filed Vital Signs Vital Sign Reading Time Taken Comments Blood Pressure 137/86 12/16/2019 10:19 AM CDT Pulse 66 12/16/2019 10:19 AM CDT Temperature 36.2 C (97.1 F) 09/15/2020 10:20 AM CDT Respiratory Rate 16 11/03/2019 9:05 AM CDT Oxygen Saturation 97% 11/03/2019 9:05 AM CDT Inhaled Oxygen Concentration - - Weight 87.5 kg (193 lb) 12/16/2019 10:19 AM CDT Height 174 cm (5' 8.5 ) 12/16/2019 10:19 AM CDT Body Mass Index 28.92 12/16/2019 10:19 AM CDT Plan of Treatment Not on file Insurance [facility] MEDICARE [employer] MEDICARE PPO [employer] MEDICARE GOLD Advance Directives For more information, please contact: [phone] * Full Code (Latest Code Status on File) Date Activated Date Inactivated Comments 04/25/2017 10:34 AM 04/25/2017 2:36 PM Care Teams Train Attendant Relationship Specialty Start Date End Date Asif Orellana DO PCP - General Family Medicine 09/15/20
--- OUTSIDE RECORDS SUMMARY | 2024-07-14 10:07 | XMS_ITS | Referral Summary ---
Author Organization [facility] [address] Address [address] [place] [address] Phone Care Team Providers Care Mainframe Programmer Analyst Name Role Phone Asif Orellana Primary Care Provider [phone] Allergies Active Allergy Reactions Criticality Noted Date [...] 04/28/2019 Assessment & Plan (04/30/2019 9:19 AM WRAPPER REWINDER): Urinalysis showed some pyuria and greater than [...] urinalysis. Assessment & Plan (05/31/2019 5:48 PM WRAPPER REWINDER): His left flank/pelvic discomfort/left lower abdominal symptoms [...] 10/06/2018 Assessment & Plan (05/10/2019 2:01 PM WRAPPER REWINDER): No major hip pathology was reported on his recent stone protocol CT scan. It could be a referred pain from his back. We will review with radiology. Assessment & Plan (04/21/2019 10:14 AM WRAPPER REWINDER): He has been experiencing some nagging left [...] 10/06/2018 Assessment & Plan (04/30/2019 9:20 AM WRAPPER REWINDER): He continues to have left-sided mid to lower back and flank pain of unknown cause. It is intermittent and seems to be related mostly to position, so a musculoskeletal cause is suspected. No major pathology was reported on his renal stone protocol CT scan. We will review in person with Radiology. Assessment & Plan (05/03/2019 3:47 PM WRAPPER REWINDER): He has somewhat chronic left-sided mid to [...] 10/27/2019 Assessment & Plan (04/21/2019 10:13 AM WRAPPER REWINDER): Blood pressure is in a good range. [...] continue to check blood pressure at home. [place] blood pressure is around 120/70. If he [...] and getting regular aerobic exercise. Ten year [place] risk is also somewhat elevated at 10%. He might be able to reduce that risk by taking a cholesterol medicine. After discussing risks versus benefits, he would like to try generic Lipitor 20 mg daily. We will check a follow-up lipid panel in about a year. Assessment & Plan (03/06/2018 9:08 AM WRAPPER REWINDER): We do not have a current lipid [...] 10/27/2019 Assessment & Plan (05/03/2019 3:50 PM WRAPPER REWINDER): He has put on a few pounds. This might be contributing to his back/flank/hip issues. Weight loss would probably help. We will have him work on this. Assessment & Plan (09/16/2018 10:15 AM CDT): Weight is down few lb, so he is no longer technically obese. Continue efforts. Assessment & Plan (03/06/2018 9:08 AM WRAPPER REWINDER): His weight fluctuates. He was down as low as about 193 lb, but is 10 lb heavier, placing him in a technically obese category again. He has been lifting weights. His has been placed on a low-carbohydrate diet so he thinks this will help. I encouraged him to continue efforts along this line. Assessment & Plan (02/14/2017 12:03 PM WRAPPER REWINDER): Ever since he retired, he has not [...] clinically. Assessment & Plan (05/10/2019 2:00 PM WRAPPER REWINDER): Prostate is somewhat enlarged, but probably more or less normal for his age. There is no tenderness to suggest prostatitis. Exam is similar to six months ago when he was here for his annual. Assessment & Plan (05/03/2019 3:47 PM WRAPPER REWINDER): He has no new symptoms. He was [...] done. Assessment & Plan (03/06/2018 9:04 AM WRAPPER REWINDER): He ran out of Flomax, but has [...] did go to see a urologist in [place] a few years ago, but he does not recall any of the details. He will get the PSA done today. Tinnitus aurium, left 02/06/2010 Assessment & Plan (02/14/2017 12:03 PM WRAPPER REWINDER): Some associated hearing loss. 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 It only bothers him when he [...] it. Assessment & Plan (02/14/2017 12:04 PM WRAPPER REWINDER): No history of injury. Occasional radiation to [...] CDT): Symptoms are reasonably well controlled with dycb-iyj-jvrlswk Zyrtec. His chronic cough has resolved. He thinks it is because a pet they had in the house . Continue to monitor. Assessment & Plan (02/14/2017 12:04 PM WRAPPER REWINDER): Mostly fall allergies affecting eyes and nasal [...] treatment. Assessment & Plan (03/06/2018 9:07 AM WRAPPER REWINDER): We are monitoring a somewhat borderline blood [...] PRWP, but no definite evidence of prior [place]. We will order a treadmill stress test. [place] risk based on his last cholesterol profile [...] 08/14/2017 Assessment & Plan (03/01/2017 12:33 PM WRAPPER REWINDER): Irritation in chest with mostly nonproductive cough [...] PCV 13 02/14/2017 Pneumococcal Polysaccharide PPV23 03/06/2018 Social History Tobacco Use Types Packs/Day Years [...] on file Legal Sex Male 11:10 AM WRAPPER REWINDER Gender Identity Not on file Sexual Orientation Not on file Last Filed Vital Signs Vital Sign Reading [...] Plan of Treatment Not on file Insurance [facility] MEDICARE [employer] CHOICE MEDICARE PPO [employer] MEDICARE GOLD Advance Directives For more information, please contact: [phone] * Full Code (Latest Code Status on File) Date Activated Date Inactivated Comments 04/25/2017 10:34 AM 04/25/2017 2:36 PM Care Teams Mainframe Programmer Analyst Relationship Specialty Start Date End Date Asif Orellana DO PCP - General Family Medicine 09/15/20
--- OUTSIDE RECORDS SUMMARY | 2024-07-14 10:08 | XMS_ITS | Encounter Summary ---
Author Organization [facility] Address [address] [place] [address] Phone Care Team Providers Care Guard Supervisor Name Role Phone Saji Baig MD Primary Care Provider [phone] Asif Orellana DO Primary Care Provider [phone] Reason for Referral * MRI/CAT/PET Scan (Routine) - Closed Specialty Diagnoses / Procedures Referred By Contac t Referred To Contact Radiology Diagnoses Left-sided tinnitus Procedures MRI Brain W WO Contrast Saji Baig MD Phone: tel: fax: Referral ID Status Reason Start Date Expiration Date Visits Re quested Visits Authorized [id number] Closed 02/14/2017 08/13/2017 1 1 K LEADER Encounter Details Date Type Department Care Team (Late st Contact Info) Description 02/14/2017 Orders Only [facility] [address] [place] [address] Saji Baig MD [address] [place] [address] Left-sided tinnitus (Primary Dx) Social History Tobacco Use Types Packs/Day Years Used Date Smoking Tobacco: Never Smokeless Tobacco: Never Alcohol Use Standard Drinks/Week Comments Yes 0 (1 standard drink = 0.6 oz pur e alcohol) Sex and Gender Information Value Date Recorded Sex Assigned at Not on file Legal Sex Male 11:10 AM TRACK LEADER Gender Identity Not on file Sexual Orientation Not on file documented as of this encounter Plan of Treatment Not on file documented as of this encounter Procedures Procedure Name Priority Date/Time Associated Diagnosis Comments CREATININE, WHOLE BLOOD STAT 02/19/2017 5:08 PM TRACK LEADER documented in this encounter Results * MRI Brain W WO Contrast (02/20/2017 12:14 AM TRACK LEADER) Anatomical Region Laterality Modality Head and Neck N/A Magnetic Resonan ce 02/20/2017 12:1 4 AM TRACK LEADER Narrative 02/20/2017 4:58 AM TRACK LEADER MR Brain W/WO Acc#: [id number] DATE OF EXAM: Feb 19 2017 MR Brain W/WO HISTORY: Left-sided tinnitus for years. TECHNIQUE: Pre-gadolinium sagittal FLAIR; axial T1 inversion recovery, T2, FLAIR, DWI; thin section axial T1 and heavily weighted 3-D T2 images through the meczcroid-XXC-wzyocmxe bone region; thin section coronal T1 weighted images through the xaabqcbrc-PFL-ocbudhvv bone region; post gadolinium axial T1 inversion recovery and 3-D sagittal T1 sequence with axial and coronal reformatting plus thin section coronal and axial T1-weighted images through the gppyziwvb-ZAQ-bvhmsmru bone regions. CONTRAST: 10 mL Dotarem IV COMPARISON: FINDINGS: Motion artifact mildly compromises detail on some sequences. Ventricles, basal cisterns and cortical sulci are normal. García and white matter signal intensities are normal. No mass, hemorrhage, edema or midline shift is seen. No abnormal intra-axial or extra-axial fluid collection is identified. No diffusion restriction/brain edema is identified on DWI. No temporal pqvb-JWO-apwcqmuq bone mass is identified. Remainder of base of skull and calvarium are unremarkable. IMPRESSION: 1. Normal MRI brain with and without gadolinium to include IACs. Electronically signed by: Wayne Quijano Jr., M.D. Interpreting Physician: DR WAYNE QUIJANO M.D. Read on: Feb 19 2017 10:58P Transcribed by: [facility] On: Feb 19 2017 10:56P Approved Electronically by: GERMAN Benavides, DR RODRIGUEZ on: Feb 19 2017 10:56P Ordering DR: DR SAJI BAIG Attending DR: DR SAJI BAIG Attending: DR SAJI BAIG Requesting: DR SAJI BAIG Requesting Fax: -- Attending Attending ID: [id number] Requesting ID: [id number] Report To 1 ID: [id number] Report To 1 Name: DR SAJI BAIG Report To 1 FAX: [phone] [facility] Order #: [id number] Procedure Note Miscellaneous, Not In File - 02/19/2017 MR Brain W/WO Acc#: [id number] DATE OF EXAM: Feb 19 2017 MR Brain W/WO HISTORY: Left-sided tinnitus for years. TECHNIQUE: Pre-gadolinium sagittal FLAIR; axial T1 inversion recovery, T2, FLAIR, DWI; thin section axial T1 and heavily weighted 3-D T2 images through the ptefsvlpc-BWE-qiwgvxyw bone region; thin section coronal T1 weighted images through the ekohbisip-VOI-qsgxvvvy bone region; post gadolinium axial T1 inversion recovery and 3-D sagittal T1 sequence with axial and coronal reformatting plus thin section coronal and axial T1-weighted images through the illvyipub-ZDR-szyjmxny bone regions. CONTRAST: 10 mL Dotarem IV COMPARISON: FINDINGS: Motion artifact mildly compromises detail on some sequences. Ventricles, basal cisterns and cortical sulci are normal. García and white matter signal intensities are normal. No mass, hemorrhage, edema or midline shift is seen. No abnormal intra-axial or extra-axial fluid collection is identified. No diffusion restriction/brain edema is identified on DWI. No temporal qsab-NPK-bixmzthx bone mass is identified. Remainder of base of skull and calvarium are unremarkable. IMPRESSION: 1. Normal MRI brain with and without gadolinium to include IACs. Electronically signed by: Wayne Quijano Jr., M.D. Interpreting Physician: DR WAYNE QUIJANO M.D. Read on: Feb 19 2017 10:58P Transcribed by: [place] On: Feb 19 2017 10:56P Approved Electronically by: GERMAN Benavides, DR RODRIGUEZ on: Feb 19 2017 10:56P Ordering DR: DR SAJI BAIG Attending DR: DR SAJI BAIG Attending: DR SAJI BAIG Requesting: DR SAJI BAIG Requesting Fax: -- Attending Attending ID: [id number] Requesting ID: [id number] Report To 1 ID: [id number] Report To 1 Name: DR SAJI BAIG Report To 1 FAX: [phone] [facility] Order #: [id number] Saji Baig MD IMG MRI PROCEDURES Final Resu lt * (ABNORMAL) Creatinine, whole blood (02/19/2017 5:08 PM TRACK LEADER) Creatinine, bld 1.38(H) 0.60 - 1.30 mg/dL [facility] ([place]) Blood specimen (specimen) 02/19/2017 5:08 PM TRACK LEADER 02/19/2017 5:11 PM TRACK LEADER Saji Baig MD LAB BLOOD ORDERABLES Final Re sult [facility] ([employer]) 1 [facility] Department [place] [address] documented in this encounter Visit Diagnoses Diagnosis Left-sided tinnitus- Primary Unspecified tinnitus Left-sided tinnitus Unspecified tinnitus documented in this encounter Care Teams Guard Supervisor Relationship Specialty Start Date End Date Saji Baig MD [address] [place] [address] PCP - General Infectious Diseases 11/23/16 09/14/20 Asif Orellana DO [address] [place] [address] PCP - General Family Medicine 09/15/20 documented as of this encounter
--- OUTSIDE RECORDS SUMMARY | 2024-07-14 10:08 | XMS_ITS | Encounter Summary ---
Author Organization [facility] Healthcare Address [address] [place] [address] Care Team Providers Care Cornetist Name Role Phone Justin Baig MD Primary Care Provider [phone] Asif Orellana DO Primary Care Provider [phone] Encounter Details Date Type Department Care Team (Late st Contact Info) Description 12/23/2019 Telephone [facility] [address] [place] [address] Deborah De Leon, RT Social History Tobacco Use Types Packs/Day Years Used Date Smoking Tobacco: Never Smokeless Tobacco: Never Alcohol Use Standard Drinks/Week Comments Yes 0 (1 standard drink = 0.6 oz pur e alcohol) PHQ-2 Answer Date Recorded PHQ-2 Total Score (If total score is 3 or more points, staff should administer the PHQ-9) 0 11/03/2019 Sex and Gender Information Value Date Recorded Sex Assigned at Not on file Legal Sex Male 11:10 AM CUT OFF TENDER GLASS Gender Identity Not on file Sexual Orientation Not on file documented as of this encounter Plan of Treatment Not on file documented as of this encounter Visit Diagnoses Not on filedocumented in this encounter Care Teams Cornetist Relationship Specialty Start Date End Date Justin Baig MD [address] [place] [address] PCP - General Infectious Diseases 11/23/16 09/14/20 Asif Orellana DO [address] [place] [address] PCP - General Family Medicine 09/15/20 documented as of this encounter
[2024-07-14 19:44] LABS: Alanine Aminotransferase 16 U/L (6-50); Albumin Level 4.3 g/dL (3.5-5.1); Alkaline Phosphatase 123 U/L (38-126); Anion Gap 7 mmol/L (4-12); Aspartate Amino Transferase 52 U/L (17-59); Bilirubin,Total 0.5 mg/dL (0.2-1.3); Blood Urea Nitrogen 24 mg/dL (9-20); Carbon Dioxide 28 mmol/L (22-30); Chloride 106 mmol/L (98-107); Cholesterol 125 mg/dL (0-200); Estimated Glomerular Filt Rate > 60; Glucose 100 mg/dL (65-110); HDL Direct 23 mg/dL; Potassium 4.7 mmol/L (3.4-5.0); Sodium 141 mmol/L (137-145); Triglycerides 115 mg/dL (<150)
[2024-07-14 19:56] LABS: LDL Cholesterol Direct 76 mg/dL
== END 2024-07-14 09:19 | disposition home or self-care (01) ==
LOC: ANHBWCLAB 09:20
PROVIDERS: PCP Nurse Practitioner Adult Health; Visit Provider Nurse Practitioner Adult Health
DX: I10 Essential (primary) hypertension (principal)
CPT/HCPCS: 36415; 80053; 80061

== ENCOUNTER 2024-12-22 09:16 | Outpatient (CLI) | payer MEDICARE, SELFPAY ==
--- OUTSIDE RECORDS SUMMARY | 2024-12-22 10:34 | XMS_ITS | Encounter Summary ---
Author Organization [facility] Address [address] [place] [address] Phone Care Team Providers Care Clinical Administrative Coordinator Name Role Phone Saji Baig MD Primary Care Provider Asif Orellana DO Primary Care Provider [phone] Reason for Referral * MRI/CAT/PET Scan (Routine) - Closed Specialty Diagnoses / Procedures Referred By Contac t Referred To Contact Radiology Diagnoses Left-sided tinnitus Procedures MRI Brain W WO Contrast Saji Baig MD Phone: tel: fax: Referral ID Status Reason Start Date Expiration Date Visits Re quested Visits Authorized [id number] Closed 02/14/2017 08/13/2017 1 1 PHONE ENGINEER Encounter Details Date Type Department Care Team (Late st Contact Info) Description 02/14/2017 Orders Only [facility] [address] [place] [address] Saji Baig MD [address] [place] [address] Left-sided tinnitus (Primary Dx) Social History Tobacco Use Types Packs/Day Years Used Date Smoking Tobacco: Never Smokeless Tobacco: Never Alcohol Use Standard Drinks/Week Comments Yes 0 (1 standard drink = 0.6 oz pur e alcohol) Sex and Gender Information Value Date Recorded Sex Assigned at Not on file Legal Sex Male 11:10 AM TELEPHONE ENGINEER Gender Identity Not on file Sexual Orientation Not on file documented as of this encounter Plan of Treatment Not on file documented as of this encounter Procedures Procedure Name Priority Date/Time Associated Diagnosis Comments CREATININE, WHOLE BLOOD STAT 02/19/2017 5:08 PM TELEPHONE ENGINEER documented in this encounter Results * MRI Brain W WO Contrast (02/20/2017 12:14 AM TELEPHONE ENGINEER) Anatomical Region Laterality Modality Head and Neck N/A Magnetic Resonan ce 02/20/2017 12:1 4 AM TELEPHONE ENGINEER Narrative 02/20/2017 4:58 AM TELEPHONE ENGINEER MR Brain W/WO Acc#: [id number] DATE OF EXAM: Feb 19 2017 MR Brain W/WO HISTORY: Left-sided tinnitus for years. TECHNIQUE: Pre-gadolinium sagittal FLAIR; axial T1 inversion recovery, T2, FLAIR, DWI; thin section axial T1 and heavily weighted 3-D T2 images through the forcnipxo-ALI-qxgsxadl bone region; thin section coronal T1 weighted images through the apzhnupcd-GPV-hknqwbrp bone region; post gadolinium axial T1 inversion recovery and 3-D sagittal T1 sequence with axial and coronal reformatting plus thin section coronal and axial T1-weighted images through the nakpddjrw-PRJ-podblvlm bone regions. CONTRAST: 10 mL Dotarem IV COMPARISON: FINDINGS: Motion artifact mildly compromises detail on some sequences. Ventricles, basal cisterns and cortical sulci are normal. García and white matter signal intensities are normal. No mass, hemorrhage, edema or midline shift is seen. No abnormal intra-axial or extra-axial fluid collection is identified. No diffusion restriction/brain edema is identified on DWI. No temporal hdqf-OQC-npgsfyxa bone mass is identified. Remainder of base of skull and calvarium are unremarkable. IMPRESSION: 1. Normal MRI brain with and without gadolinium to include IACs. Electronically signed by: Wayne Quijano Jr., M.D. Interpreting Physician: DR WAYNE QUIJANO M.D. Read on: Feb 19 2017 10:58P Transcribed by: [facility] On: Feb 19 2017 10:56P Approved Electronically by: GERMAN Benavides, DR RODRIGUEZ on: Feb 19 2017 10:56P Ordering DR: DR SAJI BAIG Attending DR: DR SAJI BAIG Attending: DR SAJI BAIG Requesting: DR SAJI BAIG Requesting Fax: -- Attending Attending ID: [id number] Requesting ID: [id number] Report To 1 ID: [id number] Report To 1 Name: DR SAJI BAIG Report To 1 FAX: [phone] [facility] Order #: [id number] Procedure Note Miscellaneous, Not In File - 02/19/2017 MR Brain W/WO Acc#: [id number] DATE OF EXAM: Feb 19 2017 MR Brain W/WO HISTORY: Left-sided tinnitus for years. TECHNIQUE: Pre-gadolinium sagittal FLAIR; axial T1 inversion recovery, T2, FLAIR, DWI; thin section axial T1 and heavily weighted 3-D T2 images through the jjcyybvyc-NSQ-erbxszxm bone region; thin section coronal T1 weighted images through the urojdraou-TWH-mbezdlpy bone region; post gadolinium axial T1 inversion recovery and 3-D sagittal T1 sequence with axial and coronal reformatting plus thin section coronal and axial T1-weighted images through the utmurmmml-CON-tjiqovlg bone regions. CONTRAST: 10 mL Dotarem IV COMPARISON: FINDINGS: Motion artifact mildly compromises detail on some sequences. Ventricles, basal cisterns and cortical sulci are normal. García and white matter signal intensities are normal. No mass, hemorrhage, edema or midline shift is seen. No abnormal intra-axial or extra-axial fluid collection is identified. No diffusion restriction/brain edema is identified on DWI. No temporal asry-QON-tykzsffo bone mass is identified. Remainder of base [...] BAIG Requesting Fax: -- Attending Attending ID: [id number] Requesting ID: [id number] Report To 1 ID: [id number] Report To 1 Name: DR SAJI BAIG Report To 1 FAX: [phone] [facility] Order #: [id number] Saji Baig MD IMG MRI PROCEDURES Final Resu lt * (ABNORMAL) Creatinine, whole blood (02/19/2017 5:08 PM TELEPHONE ENGINEER) Creatinine, bld 1.38(H) 0.60 - 1.30 mg/dL [facility] ([place]) Blood specimen (specimen) 02/19/2017 5:08 PM TELEPHONE ENGINEER 02/19/2017 5:11 PM TELEPHONE ENGINEER Saji Baig MD LAB BLOOD ORDERABLES Final Re sult [facility] ([facility]) 1 [facility] [place] [address] documented in this encounter Visit Diagnoses Diagnosis Left-sided tinnitus- Primary Unspecified tinnitus Left-sided tinnitus Unspecified tinnitus documented in this encounter Care Teams Clinical Administrative Coordinator Relationship Specialty Start Date End Date Saji Baig MD [address] [place] [address] PCP - General Infectious Diseases 11/23/16 09/14/20 Asif Orellana DO [address] [place] [address] PCP - General Family Medicine 09/15/20 documented as of this encounter
--- OUTSIDE RECORDS SUMMARY | 2024-12-22 10:34 | XMS_ITS | Encounter Summary ---
Author Organization [facility] Healthcare Address [address] [place] [address] Care Team Providers Care Medical Billing Coordinator Name Role Phone Justin Baig MD Primary Care Provider [phone] Asif Orellana DO Primary Care Provider [phone] Encounter Details Date Type Department Care Team (Late st Contact Info) Description 12/23/2019 Telephone [facility] [address] [place] [address] Deborah De Leon, RT Social History Tobacco [...] on file Legal Sex Male 11:10 AM DIE CAST ENGINEER Gender Identity Not on file Sexual Orientation Not on file documented as of this encounter Plan of Treatment Not on file documented as of this encounter Visit Diagnoses Not on filedocumented in this encounter Care Teams Medical Billing Coordinator Relationship Specialty Start Date End Date Justin Baig MD [address] [place] [address] PCP - General Infectious Diseases 11/23/16 09/14/20 Asif Orellana DO [address] [place] [address] PCP - General Family Medicine 09/15/20 documented as of this encounter
--- OUTSIDE RECORDS SUMMARY | 2024-12-22 10:34 | XMS_ITS | Clinical Summary ---
Author Organization 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 Assessment & Plan (05/31/2019 5:48 PM SMALL WIND ENERGY INSTALLER): His left flank/pelvic discomfort/left lower abdominal symptoms [...] 10/06/2018 Assessment & Plan (05/10/2019 2:01 PM SMALL WIND ENERGY INSTALLER): No major hip pathology was reported on his recent stone protocol CT scan. It could be a referred pain from his back. We will review with radiology. Assessment & Plan (04/21/2019 10:14 AM SMALL WIND ENERGY INSTALLER): He has been experiencing some nagging left [...] 10/06/2018 Assessment & Plan (04/30/2019 9:20 AM SMALL WIND ENERGY INSTALLER): He continues to have left-sided mid to lower back and flank pain of unknown cause. It is intermittent and seems to be related mostly to position, so a musculoskeletal cause is suspected. No major pathology was reported on his renal stone protocol CT scan. We will review in person with Radiology. Assessment & Plan (05/03/2019 3:47 PM SMALL WIND ENERGY INSTALLER): He has somewhat chronic left-sided mid to [...] 10/27/2019 Assessment & Plan (04/21/2019 10:13 AM SMALL WIND ENERGY INSTALLER): Blood pressure is in a good range. [...] continue to check blood pressure at home. Shannon blood pressure is around 120/70. If he [...] and getting regular aerobic exercise. Ten year Bulverde risk is also somewhat elevated at 10%. He might be able to reduce that risk by taking a cholesterol medicine. After discussing risks versus benefits, he would like to try generic Lipitor 20 mg daily. We will check a follow-up lipid panel in about a year. Assessment & Plan (03/06/2018 9:08 AM SMALL WIND ENERGY INSTALLER): We do not have a current lipid [...] 10/27/2019 Assessment & Plan (05/03/2019 3:50 PM SMALL WIND ENERGY INSTALLER): He has put on a few pounds. This might be contributing to his back/flank/hip issues. Weight loss would probably help. We will have him work on this. Assessment & Plan (09/16/2018 10:15 AM CDT): Weight is down few lb, so he is no longer technically obese. Continue efforts. Assessment & Plan (03/06/2018 9:08 AM SMALL WIND ENERGY INSTALLER): His weight fluctuates. He was down as low as about 193 lb, but is 10 lb heavier, placing him in a technically obese category again. He has been lifting weights. His has been placed on a low-carbohydrate diet so he thinks this will help. I encouraged him to continue efforts along this line. Assessment & Plan (02/14/2017 12:03 PM SMALL WIND ENERGY INSTALLER): Ever since he retired, he has not [...] clinically. Assessment & Plan (05/10/2019 2:00 PM SMALL WIND ENERGY INSTALLER): Prostate is somewhat enlarged, but probably more or less normal for his age. There is no tenderness to suggest prostatitis. Exam is similar to six months ago when he was here for his annual. Assessment & Plan (05/03/2019 3:47 PM SMALL WIND ENERGY INSTALLER): He has no new symptoms. He was [...] done. Assessment & Plan (03/06/2018 9:04 AM SMALL WIND ENERGY INSTALLER): He ran out of Flomax, but has [...] did go to see a urologist in [place] a few years ago, but he does not recall any of the details. He will get the PSA done today. Tinnitus aurium, left 02/06/2010 Assessment & Plan (02/14/2017 12:03 PM SMALL WIND ENERGY INSTALLER): Some associated hearing loss. 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 It only bothers him when he [...] it. Assessment & Plan (02/14/2017 12:04 PM SMALL WIND ENERGY INSTALLER): No history of injury. Occasional radiation to [...] CDT): Symptoms are reasonably well controlled with [id number] Zyrtec. His chronic cough has resolved. He thinks it is because a pet they had in the house . Continue to monitor. Assessment & Plan (02/14/2017 12:04 PM SMALL WIND ENERGY INSTALLER): Mostly fall allergies affecting eyes and nasal [...] treatment. Assessment & Plan (03/06/2018 9:07 AM SMALL WIND ENERGY INSTALLER): We are monitoring a somewhat borderline blood [...] PRWP, but no definite evidence of prior PR. We will order a treadmill stress test. Bulverde risk based on his last cholesterol profile [...] 08/14/2017 Assessment & Plan (03/01/2017 12:33 PM SMALL WIND ENERGY INSTALLER): Irritation in chest with mostly nonproductive cough [...] lacking. COLONOSCOPY 04/25/2017 Tubular adenoma, Dr. Mcqueen, [facility]. CYSTOSCOPY 01/08/2020 Office procedure, normal except for [...] on file Legal Sex Male 11:10 AM SMALL WIND ENERGY INSTALLER Gender Identity Not on file Sexual Orientation [...] 10:19 AM CDT Height 174 cm (5' 8.5) 12/16/2019 10:19 AM CDT Body Mass Index 28.92 12/16/2019 10:19 AM CDT Plan of Treatment Not on file Insurance [facility] MEDICARE [employer] MEDICARE PPO [employer] MEDICARE GOLD Advance Directives For more information, please contact: [phone] * Full Code (Latest Code Status on File) Date Activated Date Inactivated Comments 04/25/2017 10:34 AM 04/25/2017 2:36 PM Care Teams Pork Cutlet Maker Relationship Specialty Start Date End Date Asif Orellana DO PCP - General Family Medicine 09/15/20
[2024-12-22 19:48] LABS: Alanine Aminotransferase 14 U/L (6-50); Albumin Level 4.3 g/dL (3.5-5.1); Alkaline Phosphatase 131 U/L (38-126); Anion Gap 7 mmol/L (4-12); Aspartate Amino Transferase 50 U/L (17-59); Bilirubin,Total 0.7 mg/dL (0.2-1.3); Blood Urea Nitrogen 23 mg/dL (9-20); Calcium 8.9 mg/dL (8.4-10.2); Carbon Dioxide 26 mmol/L (22-30); Chloride 107 mmol/L (98-107); Cholesterol 112 mg/dL (0-200); Estimated Glomerular Filt Rate > 60; Glucose 92 mg/dL (65-110); HDL Direct 23 mg/dL; Potassium 4.4 mmol/L (3.4-5.0); Sodium 140 mmol/L (137-145); Total Protein 7.5 g/dL (6.3-8.2); Triglycerides 134 mg/dL (<150)
== END 2024-12-22 09:17 | disposition home or self-care (01) ==
LOC: ANHBWCLAB 09:17
PROVIDERS: PCP Nurse Practitioner Adult Health; Visit Provider Nurse Practitioner Adult Health
DX: I10 Essential (primary) hypertension (principal)
CPT/HCPCS: 36415; 80053; 80061